=== PATIENT | male | born 1985 | race African-American/Black ===

== ENCOUNTER 2017-06-30 12:13 | Emergency (ER) | payer MEDICAID, OTHER ==
[~2017-06-30] VITALS: Ht 180.3 cm; Wt 109.0 kg
[~2017-06-30 12:13] MED LIST: ARIP15TA2
[2017-06-30 12:19] VITALS: BP 168/116
== END 2017-06-30 15:16 | disposition left against medical advice (07) ==
LOC: ER 12:13
DX: R50.9 Fever, unspecified (principal); Z53.21 Procedure and treatment not carried out due to patient leaving prior to being seen by health care provider

== ENCOUNTER 2019-04-23 00:27 | Emergency (ER) | payer MEDICAID ==
[~2019-04-23] VITALS: Ht 180.3 cm; Wt 113.0 kg
[2019-04-23] MEDS ORDERED: FENTANYL CITRATE/PF 50MCG/ML 2ML VIAL IM ONE (03:30)
[2019-04-23] MEDS ORDERED: BACITRACIN ZINC OINT UDPKT TOP ONE (03:30)
[2019-04-23] MEDS ORDERED: LIDOCAINE HCL/PF 1% 10 MG/ML 5ML VIAL IJ ONE (03:30)
[2019-04-23] MEDS ORDERED: ONDANSETRON 4MG ODT PO ONE (03:30)
[2019-04-23 05:53] VITALS: BP 142/86
== END 2019-04-23 05:54 | disposition home or self-care (01) ==
LOC: ER 00:27
DX: L02.215 Cutaneous abscess of perineum (principal); E78.00 Pure hypercholesterolemia, unspecified; I10 Essential (primary) hypertension; F20.9 Schizophrenia, unspecified
CPT/HCPCS: 10060; 99283; A4217; J3010; J3490; Q0162; Z7610

== ENCOUNTER 2020-02-15 04:27 | Emergency (ER) | payer MEDICAID ==
[~2020-02-15] VITALS: Ht 185.4 cm; Wt 118.0 kg
[2020-02-15 04:38] VITALS: BP 156/109
== END 2020-02-15 06:45 | disposition left against medical advice (07) ==
LOC: ER 04:27
DX: Z53.21 Procedure and treatment not carried out due to patient leaving prior to being seen by health care provider (principal)

== ENCOUNTER 2023-04-17 17:34 | Emergency (ER) | payer MEDICAID, OTHER ==
[~2023-04-17] VITALS: Ht 185.4 cm; Wt 111.0 kg
[2023-04-17] MEDS ORDERED: HALOPERIDOL LACTATE 5MG/ML VIAL IM STA (17:38)
[2023-04-17] MEDS ORDERED: DIPHENHYDRAMINE 50MG/ML VIAL IM STA (17:38)
[2023-04-17] MEDS ORDERED: LORAZEPAM 2MG/ML CPJ IM ONE (17:45)
[2023-04-17 18:16] LABS: BASOPHILS % 0.7 % (0.0-2.0); EOSINOPHILS % 1.8 % (0.0-5.0); HEMATOCRIT. 44.8 % (42.0-52.0); HEMOGLOBIN. 14.8 g/dL (14.0-18.0); LYMPHOCYTES % 26.8 % (20.0-50.0); MEAN CORPUSCULAR HEMOGLOBIN 30.3 pg (28.0-32.0); MEAN CORPUSCULAR HGB CONC 33.1 g/dL (31.0-37.0); MEAN CORPUSCULAR VOLUME 91.4 fL (80.0-94.0); MEAN PLATELET VOLUME 9.4 fl (7.4-10.4); MONOCYTES % 6.6 % (2.0-8.0); NEUTROPHILS % 64.1 % (40.0-76.0); PLATELET 224 x1000/uL (130-400); RED CELL DISTRIBUTION WIDTH 14.8 % (11.6-14.6); WHITE BLOOD COUNT 12.4 x1000/uL (4.5-11.0)
[2023-04-17 18:22] LABS: CLARITY URINE CLEAR (CLEAR); COLOR URINE DARK YELLOW (YELLOW); GLUCOSE URINE NEGATIVE (NEGATIVE); KETONES URINE TRACE (NEGATIVE); LEUKOCYTE ESTERASE URINE NEGATIVE (NEGATIVE); NITRITE URINE NEGATIVE (NEGATIVE); OCCULT BLOOD URINE NEGATIVE (NEGATIVE); PH URINE 5.5 (4.5-8.0); PROTEIN URINE 2+ (NEGATIVE); SPECIFIC GRAVITY URINE 1.035 (1.005-1.030)
[2023-04-17 18:24] LABS: WBC URINE 0-2 /hpf (0-2); YEAST URINE NONE SEEN
[2023-04-17 18:28] LABS: CHLORIDE 105 mEq/L (98-107); INDEX HEMOLYSI 1 (1-3); INDEX ICTERIC 1 (1-4); INDEX LIPEMIC 1 (1-3); POTASSIUM 3.6 mEq/L (3.5-5.1); SODIUM 138 mEq/L (136-145)
[2023-04-17 18:36] LABS: *AMPHETAMINES SCREEN URINE NEGATIVE (NEGATIVE); *BARBITURATES SCREEN URINE NEGATIVE (NEGATIVE); *BENZODIAZEPINES SCREEN URINE NEGATIVE (NEGATIVE); *COCAINE SCREEN URINE NEGATIVE (NEGATIVE); CANNABINOID URINE SCREEN PRESUMTIVE POSITIVE (NEGATIVE); ECSTASY MDMA SCREEN URINE NEGATIVE (NEGATIVE); METHADONE URINE SCREEN NEGATIVE (NEGATIVE); OPIATES URINE SCREEN NEGATIVE (NEGATIVE); PHENCYCLIDINE URINE SCREEN NEGATIVE (NEGATIVE)
[2023-04-17 18:43] LABS: BACTERIA URINE 1+
[2023-04-17 18:44] LABS: ACETAMINOPHEN <2 ug/mL ug/mL (10-30); ALANINE AMINOTRANSFERASE 22 IU/L (13-61); ALBUMIN 3.9 g/dL (3.4-5.0); ASPARTATE AMINOTRANSFERASE 22 IU/L (15-37); BILIRUBIN TOTAL 0.4 mg/dL (0.1-1.0); CARBON DIOXIDE 33 mEq/L (21-32); CREATININE 1.2 mg/dL (0.6-1.3); ETHANOL BLOOD < 10 mg/dL (-10); GLUCOSE 117 mg/dL (70-105); PROTEIN TOTAL 7.9 g/dL (6.0-8.3); UREA NITROGEN BLOOD 9 mg/dL (7-21)
[2023-04-17 18:44] LABS: HYALINE CASTS URINE 0-5 /lpf; RBC URINE 0-2 /hpf (0-2); SQUAMOUS EPITHELIAL CELL URINE FEW /lpf (RARE/1+)
[2023-04-17 18:45] LABS: MUCUS URINE 1+ /lpf (NONE/TRACE)
[2023-04-17] MEDS ORDERED: HYDRALAZINE HCL 25MG TABLET PO ONE (21:15)
[2023-04-18] MEDS ORDERED: IBUPROFEN 600MG TABLET PO ONE (03:45)
[2023-04-18] MEDS ORDERED: DIPHENHYDRAMINE 50MG/ML VIAL IM NR (04:15)
[2023-04-18] MEDS ORDERED: LORAZEPAM 1MG TABLET PO ONE (06:30)
[2023-04-18] MEDS ORDERED: LORAZEPAM 2MG/ML CPJ IM STA (09:06)
[2023-04-18] MEDS ORDERED: OLANZAPINE 10 MG/VIAL IM ONE (09:15)
[2023-04-18] MEDS: OLANZAPINE 5MG TABLET ODT PO SCH (20:00)
[2023-04-19] MEDS ORDERED: LORAZEPAM 2MG/ML CPJ IM STA (08:08)
[2023-04-19] MEDS ORDERED: OLANZAPINE 10 MG/VIAL IM ONE (08:15)
[2023-04-19] MEDS: OLANZAPINE 5MG TABLET ODT PO SCH ×2 (09:00→11:16)
[2023-04-19] MEDS ORDERED: LORAZEPAM 2MG/ML CPJ IM ONE (17:30)
[2023-04-19] MEDS ORDERED: HALOPERIDOL LACTATE 5MG/ML VIAL IM ONE (17:30)
[2023-04-20] MEDS ORDERED: LORAZEPAM 2MG/ML CPJ IM STA (08:01)
[2023-04-20] MEDS ORDERED: OLANZAPINE 10 MG/VIAL IM ONE (08:15)
[2023-04-20] MEDS: OLANZAPINE 5MG TABLET ODT PO SCH ×2 (09:00→17:15)
[2023-04-20 11:32] VITALS: O2SAT 99
[2023-04-20] MEDS ORDERED: CLONIDINE 0.1MG TABLET PO ONE ×2 (16:15→18:45)
[2023-04-20 18:23] VITALS: BP 166/109; PULSE 102; RESP 18; TEMP 98.7
== END 2023-04-20 19:36 ==
LOC: ER 17:34
DX: R45.6 Violent behavior (principal); F31.9 Bipolar disorder, unspecified; E78.00 Pure hypercholesterolemia, unspecified; I10 Essential (primary) hypertension; F20.9 Schizophrenia, unspecified; Z20.822 Contact with and (suspected) exposure to COVID-19
CPT/HCPCS: 80053; 80305; 81003; 80307; 80329; 80320; 85025; 36415; 99285; 87426; 96372; C9803; J3490 ×2; J2060 ×2; Z7610 ×2; J1200; G0480

== ENCOUNTER 2023-05-23 12:41 | Emergency (ER) | payer MEDICAID, OTHER ==
[~2023-05-23] VITALS: Ht 188 cm; Wt 109.0 kg
[2023-05-23 12:47] VITALS: O2SAT 99
[2023-05-23] MEDS ORDERED: HYDR99LO MT (13:46)
[2023-05-23 14:22] VITALS: BP 154/88; PULSE 88; RESP 18; TEMP 98.6
== END 2023-05-23 14:15 | disposition home or self-care (01) ==
LOC: ER 13:20
DX: L42 Pityriasis rosea (principal); I10 Essential (primary) hypertension; E78.00 Pure hypercholesterolemia, unspecified; Z86.59 Personal history of other mental and behavioral disorders
CPT/HCPCS: 99282

== ENCOUNTER 2025-02-26 03:10 | Emergency (ER) | payer MEDICARE, MEDICAID ==
[~2025-02-26] VITALS: Ht 185.4 cm; Wt 104.0 kg
[~2025-02-26 03:10] MED LIST changes: +HYDR99LO MT
[2025-02-26 03:14] VITALS: TEMP 36.8
[2025-02-26 03:16] VITALS: BP 153/108; PULSE 72; RESP 18; O2SAT 97
[2025-02-26 03:43] LABS: CLARITY URINE CLEAR (CLEAR); COLOR URINE YELLOW (YELLOW); GLUCOSE URINE 3+ (NEGATIVE); KETONES URINE TRACE (NEGATIVE); LEUKOCYTE ESTERASE URINE NEGATIVE (NEGATIVE); NITRITE URINE NEGATIVE (NEGATIVE); OCCULT BLOOD URINE NEGATIVE (NEGATIVE); PH URINE 7.0 (4.5-8.0); PROTEIN URINE TRACE (NEGATIVE); SPECIFIC GRAVITY URINE 1.027 (1.005-1.030); UROBILINOGEN URINE 1.0 E.U./dL (0.2-1.0)
[2025-02-26 03:59] LABS: SQUAMOUS EPITHELIAL CELL URINE NONE SEEN /lpf (RARE/1+)
[2025-02-26 04:00] LABS: WBC URINE NONE SEEN /hpf (0-2)
[2025-02-26 04:01] LABS: BACTERIA URINE TRACE; RBC URINE 0-2 /hpf (0-2)
[2025-02-26] MEDS: LIDOCAINE HCL 1% 20ML VIAL INFIL NR (04:14)
[2025-02-26] MEDS: CEFTRIAXONE SODIUM 500MG VIAL IM NR (04:14)
[2025-02-26] MEDS ORDERED: DOXY100C5 MT (04:19)
[2025-02-26] MEDS ORDERED: METR-167 MT (04:20)
[2025-02-28 04:07] LABS: CHLAMYDIA TRACHOMATIS NAA Negative (Negative); NEISSERIA GONORRHOEAE NAA Negative (Negative)
== END 2025-02-26 04:28 | disposition home or self-care (01) ==
LOC: ER 03:10
DX: Z11.3 Encounter for screening for infections with a predominantly sexual mode of transmission (principal); N48.89 Other specified disorders of penis; J45.909 Unspecified asthma, uncomplicated; I10 Essential (primary) hypertension; F20.9 Schizophrenia, unspecified
CPT/HCPCS: 99283; 87491; 87591; 81003; 96372; J0696; J2003

== ENCOUNTER 2025-03-03 19:19 | Emergency (ER) | payer MEDICARE, MEDICAID ==
[~2025-03-03] VITALS: Ht 188 cm; Wt 103.0 kg
[~2025-03-03 19:19] MED LIST changes: +DOXY100C5 MT; +METR-167 MT
[2025-03-03 19:39] VITALS: O2SAT 98
[2025-03-03] MEDS: IBUPROFEN 400MG TABLET PO ONE (22:09)
[2025-03-03] MEDS: TETANUS, DIPHTHERIA, PERTUSSIS VAC/PF 0.5ML (>10YR OLD) IM ONE (22:10)
[2025-03-03 23:36] VITALS: BP 129/87; PULSE 91; RESP 18; TEMP 36.6; O2SAT 99
== END 2025-03-03 23:39 | disposition home or self-care (01) ==
LOC: ER 19:19
DX: S50.312A Abrasion of left elbow, initial encounter (principal); S60.412A Abrasion of right middle finger, initial encounter; M79.18 Myalgia, other site; F32.A Depression, unspecified; F20.9 Schizophrenia, unspecified; I10 Essential (primary) hypertension; J45.909 Unspecified asthma, uncomplicated; Y08.89XA Assault by other specified means, initial encounter; Y93.89 Activity, other specified; Y92.89 Other specified places as the place of occurrence of the external cause; Y99.8 Other external cause status; Z98.890 Other specified postprocedural states; Z79.899 Other long term (current) drug therapy
CPT/HCPCS: 73080; 73130; 73562; 90471; 90715; 99284